=== PATIENT | female | born 1985 | race African-American/Black ===

== ENCOUNTER 2021-08-19 09:50 | Emergency (ER) | payer MEDICARE ==
[~2021-08-19] VITALS: Ht 165.1 cm; Wt 81.8 kg
--- NOTE | 2021-08-19 10:57 | PHYS DOC ---
Past Medical History Past Surgical History: No Surgical History (TAMARA HIGGINS) General Adult EDM: Chief Complaint: MEDICATION REFILL HPI: HPI: Patient is a 36 year old female who presents to obtain resources for establishing care with a flight control tower operator. Patient also states that she has been outside in the cold today, and has been intermittently getting headaches. She denies any pain right now, but requests medication "in case [she] gets one later." She reports she is homeless and uninsured, but would like to make sure she has women's wellness care. She has no complaints at this time. (TAMARA HIGGINS) Review of Systems: Review of Systems: ROS negative or noncontributory except as mentioned in HPI. (TAMARA HIGGINS) Heart Score: C/O Chest Pain: No (TAMARA HIGGINS) Allergies: Allergies: Allergies Coded Allergies Type Severity Reaction Last Updated Verified No Known Drug Allergies 08/19/21 No (TAMARA HIGGINS) Physical Exam: PE: Constitutional: Well developed, well nourished, no acute distress, non-toxic appearance. HENT: Normocephalic, atraumatic, bilateral external ears normal, oropharynx moist, no oral exudates, nose normal. Eyes: EOMI, conjunctiva normal, no discharge. Neck: Normal range of motion, no stridor. Skin: Warm, dry, no erythema, no rash. Extremities: No tenderness, no cyanosis, no clubbing, ROM intact, no edema. Neurologic: Alert and oriented x4, steady and symmetrical upright gait, no focal deficits noted. (TAMARA HIGGINS) Current Patient Data: Vital Signs: Vital Signs Date Time Temp Pulse Resp B/P (MAP) Pulse Ox O2 Delivery O2 Flow Rate FiO2 08/19/21 09:55 98.3 73 16 134/68 (90) 100 Room Air 98.3 (TAMARA HIGGINS) Course & Med Decision Making: Course & Med Decision Making Pertinent Labs and Imaging studies reviewed. (See chart for details) Patient has no physical complaints at this time. She is requesting contact information for the health department and women's clinics in the area. She also asks for Tylenol in case she gets a headache later. (TAMARA HIGGINS) Dragon Disclaimer: Dragon Disclaimer: This electronic medical record was generated, in whole or in part, using a voice recognition dictation system. (TAMARA HIGGINS) Departure Departure Impression: Primary Impression: Encounter for well adult exam without abnormal findings Disposition: HOME / SELF CARE / HOMELESS Condition: STABLE Referrals: NO PCP (PCP) Patient Instructions: Health Maintenance, Females Additional Instructions: EMERGENCY DEPARTMENT GENERAL DISCHARGE INSTRUCTIONS Thank you for coming to [facility] Emergency Department (ED) to day and trusting us with you care. We trust that you had a positive experience in our Emergency Department. If you wish to speak to the department management, you may call the director at . YOUR FOLLOW UP INSTRUCTIONS ARE FOLLOWS: 1. Follow up with your primary care doctor. If you do not have a primary doctor, please ask for a resource list of physicians or clinics that may be able to assist you with follow up care. 2. The emergency provider has interpreted your imaging studies, if any were ordered. The radiology immunology specialist also reviewed them. If there is a change in the findings, you will be notified in 48 hours when at all possible. 3. If a lab test or culture has been done, your results will be reviewed and you will be notified if you need a change in treatment. 4. Follow instructions verbalized to you and refer to the printouts if needed. ADDITIONAL INSTRUCTIONS AND INFORMATION: 1. Your care today has been supervised by a physician who is specially trained in emergency care. Many problems require more than one evaluation for a complete diagnosis and treatment. We recommend that you schedule your follow up appointment as recommended to ensure complete treatment of you illness or injury. If you are unable to obtain follow up care and continue to have a problem, or if your condition worsens, we recommend that you return to the ED. 2. We are not able to safely determine your condition over the phone nor are we able to give sound medical advice over the phone. For these safety reasons, if you call for medical advice we will ask you to come to the ED for further evaluation. 3. If you have any questions regarding these discharge instructions please call the ED at . SAFETY INFORMATION: In the interest of safety, wellness, and injury prevention; we encourage you to wear your seat belt, if you smoke; quite smoking, and we encourage family to use a protective helmet for bicycling and other sporting events that present an increased risk for head injury. IF YOUR SYMPTOMS WORSEN OR NEW SYMPTOMS DEVELOP, OR YOU HAVE CONCERNS ABOUT YOUR CONDITION; OR IF YOUR CONDITION WORSENS WHILE YOU ARE WAITING FOR YOUR FOLLOW UP APPOINTMENT; EITHER CONTACT YOUR PRIMARY CARE DOCTOR, THE PHYSICIAN WHOSE NAME AND NUMBER YOU WERE GIVEN, OR RETURN TO THE ED IMMEDIATELY. Attending Co-Sign The patient was seen and interviewed as well as examined at the bedside. The chart was reviewed. The case was discussed. Agree with the plan of care. (LISA ROBERTSON DO) TAMARA HIGGINS Aug 19, 2021 10:57 LISA ROBERTSON DO Aug 19, 2021 11:53
[2021-08-19] MEDS ORDERED: ACETAMINOPHEN 325 MG TABLET. PO ONE (11:00)
[2021-08-19 11:24] VITALS: BP 126/74
== END 2021-08-19 11:25 | disposition home or self-care (01) ==
LOC: ER 09:50
DX: R51.9 Headache, unspecified (principal); Z59.00 Homelessness unspecified
CPT/HCPCS: 99282